=== PATIENT | female | born 1945 | race Caucasian/White ===

== ENCOUNTER 2020-11-12 13:58 | Inpatient (IN) | payer MEDICARE, OTHER ==
[~2020-11-12] VITALS: Ht 162.6 cm; Wt 102.5 kg
[~2020-11-12 13:58] MED LIST: ALDACTONE25 MG PO; APIDRA SOL100 UNIT/1 SQ; BENADRYL 25MG C25 MG PO; CEPHALEXIN500 MG PO; COREG 3.125M3.125 MG PO; ECOTRIN81 MG PO; FENOFIBRATE160 MG PO; INSULIN GLARGINE SQ; ISOSORBIDE MONO30 MG PO; LIORESAL TAB 1010 MG PO; NABUMETONE500 MG PO; NEURONTIN 300300 MG PO; PRINIVIL10 MG PO; ULTRAM50 MG PO; ZOCOR40 MG PO; ZOFRAN4 MG PO; ZOLOFT100 MG PO
[2020-11-12 15:59] LABS: HEMOGLOBIN 12.5 gm/dl (12.3-15.3); RED BLOOD COUNT 4.03 M/UL (4.00-5.10); WHITE BLOOD COUNT 12.5 K/UL (4.5-11.0)
[2020-11-12] MEDS ORDERED: AMBIEN10 MG PO (19:05)
[2020-11-12] MEDS ORDERED: D3-501250 MCG PO (19:08)
[2020-11-12] MEDS ORDERED: ARICEPT10 MG PO (19:09)
[2020-11-12] MEDS ORDERED: OMEPRAZOLE40 MG PO (19:10)
[2020-11-13 04:02] LABS: HEMOGLOBIN 11.5 gm/dl (12.3-15.3); RED BLOOD COUNT 3.74 M/UL (4.00-5.10); WHITE BLOOD COUNT 10.9 K/UL (4.5-11.0)
[2020-11-14 03:29] LABS: HEMOGLOBIN 11.7 gm/dl (12.3-15.3); RED BLOOD COUNT 3.78 M/UL (4.00-5.10)
[2020-11-14] MEDS ORDERED: VANCOMYCIN HCL250 MG PO (12:11)
[2020-11-14] MEDS ORDERED: CRESTOR20 MG PO (19:09)
== END 2020-11-14 15:27 | disposition home or self-care (01) | DRG 372 ==
LOC: ER1 13:58 → CDU 18:39 → M/S 20:36
PROVIDERS: Emergency Medicine; ADMIT Internal Medicine
DX: A04.72 Enterocolitis due to Clostridium difficile, not specified as recurrent (principal); N17.9 Acute kidney failure, unspecified; Z20.822 Contact with and (suspected) exposure to COVID-19; E11.9 Type 2 diabetes mellitus without complications; E86.0 Dehydration; I25.10 Atherosclerotic heart disease of native coronary artery without angina pectoris; I10 Essential (primary) hypertension; Z79.82 Long term (current) use of aspirin; Z79.4 Long term (current) use of insulin; Z79.899 Other long term (current) drug therapy; Z88.0 Allergy status to penicillin; Z88.2 Allergy status to sulfonamides; Z88.7 Allergy status to serum and vaccine; Z88.8 Allergy status to other drugs, medicaments and biological substances; Z91.040 Latex allergy status
CPT/HCPCS: 36415; 70450; 71045; 72125; 80048; 80053; 81001; 82550; 82553; 83605; 83690; 83735; 83874; 83880; 84100; 84484; 85025; 85610; 85730; 87040; 93005; 99285; J7030; U0003

== ENCOUNTER → 2021-02-14 | Outpatient (CLI) | payer MEDICARE, OTHER ==
[~2021-02-14] MED LIST changes: +AMBIEN10 MG PO; +ARICEPT10 MG PO; +CRESTOR20 MG PO; +D3-501250 MCG PO; +OMEPRAZOLE40 MG PO; +VANCOMYCIN HCL250 MG PO
== END ==
LOC: HEART CORB 10:00
DX: R07.2 Precordial pain (principal); R06.02 Shortness of breath
CPT/HCPCS: 78452; A9502; J2785

== ENCOUNTER → 2021-10-03 | Outpatient (CLI) | payer MEDICARE, OTHER | LOC: CT 10-01 14:29 | DX: R10.30 Lower abdominal pain, unspecified (principal) | CPT/HCPCS: 36415; 82565; 84520 ==

== ENCOUNTER 2022-06-09 11:37 | Emergency (ER) | payer MEDICARE, OTHER ==
[2022-06-09 13:56] LABS: HEMOGLOBIN 11.9 gm/dl (12.3-15.3); RED BLOOD COUNT 3.95 M/UL (4.00-5.10); WHITE BLOOD COUNT 10.4 K/UL (4.5-11.0)
[2022-06-09] MEDS ORDERED: BACTROBAN OINT22 GM EXT (17:05)
[2022-06-09] MEDS ORDERED: PERCOCET 5-3251 EACH PO (17:05)
== END 2022-06-09 17:42 | disposition home or self-care (01) ==
LOC: ER1 11:37
PROVIDERS: Emergency Medicine
DX: S51.811A Laceration without foreign body of right forearm, initial encounter (principal); S40.011A Contusion of right shoulder, initial encounter; S70.01XA Contusion of right hip, initial encounter; I10 Essential (primary) hypertension; E11.9 Type 2 diabetes mellitus without complications; W19.XXXA Unspecified fall, initial encounter
CPT/HCPCS: 70450; 71045; 72131; 72192; 73030; 73080; 73090; 80053; 82550; 82553; 84484; 85025; 93005; 99284